=== PATIENT | female | born 2000 | race Caucasian/White ===

== ENCOUNTER 2023-06-24 19:55 | Outpatient (CLI) | payer OTHER, SELFPAY ==
--- NOTE | 2023-07-13 17:41 | WPDSLEEPSTUD ---
Sleep Study Date of Study: 06/24/23 Ordering Provider: Baljeet Dennis, STAFF CYTOTECHNOLOGIST Interpreting Physician: Sunita Mathias DO Sleep Study Type: Polysomnogram Height: 1.6 m Weight: 73.482 kg Body Mass Index: 28.7 Neck Circumference (inches): 13.5 [place]: 8 Reason for Sleep Study Snoring, daytime hypersomnia Sleep History The patient is a 23-year-old female with ADHD, PCOS, anxiety, alcohol use disorder and tobacco use that had a sleep study ordered by her primary care for evaluation of sleep disturbances. The patient rarely awakens from sleep short of breath. She occasionally awakens at night with heartburn, belching or cough. She frequently snores and is occasionally loud enough that others complain. She constantly has trouble sleeping when she has a cold. She denies waking up gasping for air throughout the night. She rarely has breathing problems at night observed by herself or others. She occasionally sweats excessively at night. She rarely has heart palpitations or irregular heartbeats during the night. She frequently falls asleep during the day but rarely while driving. She denies sleep paralysis and cataplexy. She frequently has trouble at school or work due to sleepiness. She occasionally experiences vivid dreamlike scenes upon awakening or falling asleep. She denies feeling afraid of going to sleep. She occasionally has nightmares and occasionally remembers her dreams. She constantly has thoughts racing through her mind. She constantly feels sad, depressed and anxious. She occasionally has muscular tension. She frequently notices parts of her body jerk. She occasionally kicks during the night. She occasionally has crawling and aching feelings in her legs and occasionally has leg pain during the night. She occasionally grinds her teeth during sleep and constantly awakens with morning jaw pain. She is frequently bothered by pain during the day and occasionally awakened by pain during the night. She frequently wakes up feeling stiff in the morning. She constantly wakes up with sore or achy muscles. She frequently wakes up with pain in the neck, spine or other joints. She goes to bed between 2:24 a.m. on both weekdays and weekends. It takes her 1-2 hours to fall asleep. She wakes up 1-2 times throughout the night for unknown reasons and is able to fall back asleep within 10 minutes. She wakes up between 6-9 a.m. on both weekdays and weekends. She typically gets 3-6 hours of sleep per night. She will stay in bed for 2-4 hours after waking up in the morning. She currently lives with 2 other roommates. She denies consuming any caffeinated beverages within 2 hours of bedtime. She denies engaging in physical exercise before bedtime. She will read watch television before falling asleep. She will take naps in afternoon or the evening but they are not refreshing. She consumes 300 mg of caffeine per day. She currently smokes 1 pack of cigarettes per day. She denies alcohol use. She admits to recreational drug use. [facility] Past Medical History Medical History ADHD Anxiety Depression PCOS (polycystic ovarian syndrome) Sleep Procedure A full night polysomnogram using the [employer] multi-channel system recorded the standard physiologic parameters including EEG, EOG, submentalis EMG, anterior tibialis EMG, EKG, body position, nasal and oral airflow using nasal pressure sensor and thermistor.? Respiratory parameters of chest and abdominal movements were recorded with Respiratory Inductance Plethysmography belts. Oxygen saturation was recorded by pulse oximetry. Video monitoring was also performed. Sleep stages, periodic limb movements, and EEG arousals were scored in 30 second epochs according to the criteria of the AASM Scoring Manual. The Apnea-Hypopnea Index was calculated using [facility] guidelines for definition of hypopnea with 4% O2 desaturations while scoring re
[2023-07-13 17:57] VITALS: BMI 28.7
== END 2023-06-25 06:46 | disposition home or self-care (01) ==
LOC: CHSCSM 20:04
PROVIDERS: PCP Family Medicine; Visit Provider Registered Nurse
DX: Z72.821 Inadequate sleep hygiene (principal); G47.9 Sleep disorder, unspecified
CPT/HCPCS: 95810